=== PATIENT | female | born 1980 | race Caucasian/White ===

== ENCOUNTER 2019-01-12 14:00 | Inpatient (IN) | payer BC ==
[~2019-01-12] VITALS: Ht 167.6 cm; Wt 58.5 kg
[2019-01-12 14:39] VITALS: BP_SYST 118
[2019-01-12] MEDS ORDERED: fentaNYL CITRATE/PF 100 MCG/2 ML AMP ONE (15:39)
[2019-01-12] MEDS ORDERED: ROPIVACAINE 0.2% 100 ML ONE ×2 (15:39→23:00)
[2019-01-12] MEDS ORDERED: LR 500 ML IV ONE (15:54)
[2019-01-12] MEDS ORDERED: FENT2mCg/mL-ROPIVA0.2%/NS EPID 100 ML EP SCH (16:00)
[2019-01-12] MEDS ORDERED: OXYTOCIN/0.9 % SODIUM CHLORIDE 1,000 ML IV ONE ×2 (17:11→23:37)
[2019-01-12] MEDS ORDERED: TEMAZEPAM 15 MG CAPSULE PO PRN (21:00)
[2019-01-12] MEDS ORDERED: OXYTOCIN/0.9 % SODIUM CHLORIDE 1,000 ML IV SCH (23:37)
[2019-01-12] MEDS ORDERED: HYDROCORTISONE 0.5%, 28.35 GM TOPICAL CREAM TP PRN (23:45)
[2019-01-12] MEDS ORDERED: ANUSOL 1 EA SUPP.RECT (PREPARATION H) RC PRN (23:45)
[2019-01-12] MEDS ORDERED: DERMOPLAST SPRAY TP PRN (23:45)
[2019-01-12] MEDS ORDERED: DIPH-TET-PERTUS Vaccine 0.5 ML VIAL (ADACEL) I.M. PRN (23:45)
[2019-01-12] MEDS ORDERED: LANOLIN 7 GM OINT. TP PRN (23:45)
[2019-01-12] MEDS ORDERED: HYDROcodone/ACETAMIN 5-325 MG TAB (NORCO/ VICODIN) PO PRN (23:45)
[2019-01-12] MEDS ORDERED: RHO(D) IMMUNE GLOBULIN/MALTOSE 1500 UNITS/1.3 ML (WINHRO) IM PRN (23:45)
[2019-01-12] MEDS ORDERED: WITCH HAZEL LEAF 1 MED.PAD MED.PAD TP PRN (23:45)
[2019-01-12] MEDS ORDERED: MEASLES,MUMPS&RUBELLA VACC/PF 12500 UNIT/0.5 ML VIAL SUBQ PRN (23:45)
[2019-01-13] MEDS: OXYCODONE/ACETAMINOPHEN 5-325 TABLET PO PRN ×4 (03:25→15:08)
[2019-01-13] MEDS: IBUPROFEN 600 MG TABLET PO SCH ×3 (05:30→17:50)
[2019-01-13] MEDS: DOCUSATE SODIUM 100 MG CAPSULE PO PRN ×2 (06:00→17:49)
[2019-01-13 07:10] LABS: BASOPHILS # (AUTO) 0.1 K/uL (0.0-0.2); BASOPHILS % (AUTO) 0.5 % (0.0-2.0); EOSINOPHILS # (AUTO) 0.2 K/uL (0.0-0.4); EOSINOPHILS % (AUTO) 1.5 % (0.0-4.0); HEMATOCRIT 33.4 % (36-48); HEMOGLOBIN 11.1 g/dL (12.0-16.0); LYMPHOCYTES # (AUTO) 2.9 K/uL (1.0-5.5); LYMPHOCYTES % (AUTO) 24.2 % (20.5-51.5); MEAN CORPUSCULAR HEMOGLOBIN 32 pg (27-31); MEAN CORPUSCULAR HGB CONC 33 % (32-36); MEAN CORPUSCULAR VOLUME 97 fL (79.0-98.0); MONOCYTES # (AUTO) 0.8 K/uL (0.0-1.0); MONOCYTES % (AUTO) 6.4 % (1.7-9.3); NEUTROPHILS % (AUTO) 67.4 % (40.0-70.0); PLATELET COUNT (AUTO) 158 K/uL (130-430); RED BLOOD CELL COUNT(AUTO) 3.45 MIL/uL (4.2-6.2); RED CELL DISTRIBUTION WIDTH 13.7 % (9.0-15.0); WHITE BLOOD COUNT (AUTO) 11.9 K/uL (4.8-10.8)
[2019-01-13] MEDS ORDERED: ePHEDrine sulfate 50 MG/ML VIAL IVP ONE (07:41)
[2019-01-13] MEDS ORDERED: HYDROCORTISONE ACETATE 1 SUPP (ANUSOL HC) RC ONE (17:30)
[2019-01-13] MEDS ORDERED: HYDROCORTISONE 2.5%, 30 GM TOPICAL CREAM TP PRN (17:30)
[2019-01-13] MEDS: MILK OF MAGNESIA 30 ML UDC PO PRN (17:49)
[2019-01-14] MEDS: DOCUSATE SODIUM 100 MG CAPSULE PO PRN (00:46)
[2019-01-14] MEDS: IBUPROFEN 600 MG TABLET PO SCH ×3 (00:46→12:02)
[2019-01-14] MEDS: MILK OF MAGNESIA 30 ML UDC PO PRN (04:41)
[2019-01-14] MEDS: OXYCODONE/ACETAMINOPHEN 5-325 TABLET PO PRN (04:41)
[2019-01-14] MEDS ORDERED: SENNOSIDES/DOCUSATE SODIUM 1 TAB TABLET(SENOKOT-S) PO PRN (13:45)
== END 2019-01-14 14:00 | disposition home or self-care (01) | DRG 807 ==
LOC: SPU 14:11
PROVIDERS: ADMIT Specialist; ATTEND Specialist
PROC: 10E0XZZ Delivery of Products of Conception, External Approach (ICD-10-PCS; principal; 2019-01-12)
PROC: 10907ZC Drainage of Amniotic Fluid, Therapeutic from Products of Conception, Via Natural or Artificial Opening (ICD-10-PCS; 2019-01-12)
PROC: 3E033VJ Introduction of Other Hormone into Peripheral Vein, Percutaneous Approach (ICD-10-PCS; 2019-01-12)
PROC: 3E0R3BZ Introduction of Anesthetic Agent into Spinal Canal, Percutaneous Approach (ICD-10-PCS; 2019-01-12)
PROC: 00HU33Z Insertion of Infusion Device into Spinal Canal, Percutaneous Approach (ICD-10-PCS; 2019-01-12)
PROC: 0HQ9XZZ Repair Perineum Skin, External Approach (ICD-10-PCS; 2019-01-12)
DX: O36.5930 Maternal care for other known or suspected poor fetal growth, third trimester, not applicable or unspecified (principal); Z37.0 Single live birth; O36.8130 Decreased fetal movements, third trimester, not applicable or unspecified; O71.82 Other specified trauma to perineum and vulva; Z3A.36 36 weeks gestation of pregnancy
CPT/HCPCS: 36415; 81002-TC; 85025; J2590; J2795; J3010; J7120

== ENCOUNTER 2020-02-27 10:00 | Observation (INO) | payer BC ==
[~2020-02-27] VITALS: Ht 162.6 cm; Wt 61.2 kg
== END 2020-02-27 10:40 | disposition home or self-care (01) ==
LOC: SPU 10:00
PROVIDERS: ADMIT Specialist; ATTEND Specialist
DX: Z34.83 Encounter for supervision of other normal pregnancy, third trimester (principal); Z3A.33 33 weeks gestation of pregnancy
CPT/HCPCS: 59025; G0378

== ENCOUNTER 2020-03-05 12:29 | Observation (INO) | payer BC, SELFPAY ==
[~2020-03-05] VITALS: Ht 162.6 cm; Wt 56.2 kg
== END 2020-03-05 13:30 | disposition home or self-care (01) ==
LOC: EEVIPCON 12:29 → SPU 12:29
PROVIDERS: ADMIT Specialist; ATTEND Specialist
DX: Z03.818 Encounter for observation for suspected exposure to other biological agents ruled out (principal); Z3A.33 33 weeks gestation of pregnancy
CPT/HCPCS: 59025; 81002; G0378; U0003

== ENCOUNTER 2020-03-12 12:52 | Observation (INO) | payer BC, SELFPAY | END 2020-03-12 13:45 | disposition home or self-care (01) | LOC: SPU 12:52 | PROVIDERS: ADMIT Specialist; ATTEND Specialist | DX: O36.5930 Maternal care for other known or suspected poor fetal growth, third trimester, not applicable or unspecified (principal); Z3A.34 34 weeks gestation of pregnancy | CPT/HCPCS: G0378 ==

== ENCOUNTER 2020-03-19 15:18 | Observation (INO) | payer BC, SELFPAY ==
[~2020-03-19] VITALS: Ht 162.6 cm; Wt 61.2 kg
== END 2020-03-19 16:35 | disposition home or self-care (01) ==
LOC: SPU 15:18
PROVIDERS: ADMIT Specialist; ATTEND Specialist
DX: O36.5930 Maternal care for other known or suspected poor fetal growth, third trimester, not applicable or unspecified (principal); Z3A.35 35 weeks gestation of pregnancy
CPT/HCPCS: 81002; G0378

== ENCOUNTER 2020-03-22 12:51 | Observation (INO) | payer BC ==
[~2020-03-22] VITALS: Ht 167.6 cm; Wt 56.7 kg
== END 2020-03-22 14:10 | disposition home or self-care (01) ==
LOC: SPU 12:51 → EEVIPCON 12:51
PROVIDERS: ADMIT Specialist; ATTEND Specialist
DX: Z34.83 Encounter for supervision of other normal pregnancy, third trimester (principal); Z3A.36 36 weeks gestation of pregnancy
CPT/HCPCS: 59025; G0378

== ENCOUNTER 2020-03-25 15:39 | Observation (INO) | payer BC ==
[2020-03-25 16:52] LABS: BILIRUBIN,URINE NEGATIVE (NEGATIVE); BLOOD, URINE NEGATIVE (NEGATIVE); COLOR,URINE YELLOW (YELLOW); GLUCOSE,URINE NEGATIVE (NEGATIVE); KETONES,URINE TRACE (NEGATIVE); LEUKOCYTE ESTERASE ,URINE NEGATIVE (NEGATIVE); NITRITE, URINE NEGATIVE (NEGATIVE); PH,URINE 6.5 (5.0-8.0); PROTEIN URINE 2+ (NEGATIVE); UROBILINOGEN,URINE 0.2 (0.2-1.0)
[2020-03-25 16:55] LABS: CLARITY/URINE HAZY (CLEAR)
[2020-03-25 16:56] LABS: BASOPHILS # (AUTO) 0.1 K/uL (0.0-0.2); BASOPHILS % (AUTO) 0.7 % (0.0-2.0); EOSINOPHILS # (AUTO) 0.2 K/uL (0.0-0.4); EOSINOPHILS % (AUTO) 2.2 % (0.0-4.0); HEMOGLOBIN 12.4 g/dL (12.0-16.0); LYMPHOCYTES # (AUTO) 2.2 K/uL (1.0-5.5); LYMPHOCYTES % (AUTO) 27.1 % (20.5-51.5); MEAN CORPUSCULAR HEMOGLOBIN 32 pg (27-31); MEAN CORPUSCULAR HGB CONC 33 % (32-36); MEAN CORPUSCULAR VOLUME 97 fL (79.0-98.0); MONOCYTES # (AUTO) 0.5 K/uL (0.0-1.0); MONOCYTES % (AUTO) 6.6 % (1.7-9.3); NEUTROPHILS # (AUTO) 5.1 K/uL (1.8-7.7); NEUTROPHILS % (AUTO) 63.4 % (40.0-70.0); PLATELET COUNT (AUTO) 160 K/uL (130-430); RED BLOOD CELL COUNT(AUTO) 3.83 MIL/uL (4.2-6.2); RED CELL DISTRIBUTION WIDTH 13.2 % (9.0-15.0); WHITE BLOOD COUNT (AUTO) 8.1 K/uL (4.8-10.8)
[2020-03-25 17:06] LABS: CALCIUM 9.1 mg/dL (8.4-11.0); CREATININE 0.58 mg/dL (0.55-1.30); POTASSIUM 3.9 mmol/L (3.5-5.1)
[2020-03-25 17:13] LABS: BACTERIA,URINE MODERATE /HPF (None Seen); RBC,URINE 0-3 /HPF (0-3)
[2020-03-25 17:13] LABS: ALBUMIN 2.6 g/dL (3.4-4.8); TOTAL BILIRUBIN 0.2 mg/dL (0.0-1.0); URIC ACID 4.5 mg/dL (2.4-7.0)
[2020-03-25 17:14] LABS: MUCUS,URINE 2+ /LPF (None Seen)
[2020-03-25 18:06] LABS: INR 0.9 (0.8-1.2); PROTHROMBIN TIME 8.9 SECS (9.5-12.5)
== END 2020-03-25 17:40 | disposition home or self-care (01) ==
LOC: SPU 15:39
PROVIDERS: ADMIT Specialist; ATTEND Specialist
DX: Z34.83 Encounter for supervision of other normal pregnancy, third trimester (principal); Z3A.36 36 weeks gestation of pregnancy
CPT/HCPCS: 36415; 80053; 81000; 84550; 85025; 85610; 85730; 87086; G0378

== ENCOUNTER 2020-03-26 15:20 | Inpatient (IN) | payer BC ==
[~2020-03-26] VITALS: Ht 167.6 cm; Wt 56.7 kg
[2020-03-26] MEDS ORDERED: FIORCET PO PRN (16:30)
[2020-03-26 16:58] LABS: BASOPHILS % (AUTO) 0.5 % (0.0-2.0); EOSINOPHILS # (AUTO) 0.2 K/uL (0.0-0.4); EOSINOPHILS % (AUTO) 2.4 % (0.0-4.0); HEMOGLOBIN 11.9 g/dL (12.0-16.0); LYMPHOCYTES # (AUTO) 2.3 K/uL (1.0-5.5); LYMPHOCYTES % (AUTO) 28.7 % (20.5-51.5); MEAN CORPUSCULAR HEMOGLOBIN 32 pg (27-31); MEAN CORPUSCULAR HGB CONC 33 % (32-36); MEAN CORPUSCULAR VOLUME 97 fL (79.0-98.0); MONOCYTES # (AUTO) 0.6 K/uL (0.0-1.0); MONOCYTES % (AUTO) 7.9 % (1.7-9.3); NEUTROPHILS # (AUTO) 4.8 K/uL (1.8-7.7); NEUTROPHILS % (AUTO) 60.5 % (40.0-70.0); PLATELET COUNT (AUTO) 145 K/uL (130-430); RED BLOOD CELL COUNT(AUTO) 3.71 MIL/uL (4.2-6.2); RED CELL DISTRIBUTION WIDTH 13.2 % (9.0-15.0); WHITE BLOOD COUNT (AUTO) 7.9 K/uL (4.8-10.8)
[2020-03-26 17:01] LABS: BILIRUBIN,URINE NEGATIVE (NEGATIVE); COLOR,URINE YELLOW (YELLOW); GLUCOSE,URINE NEGATIVE (NEGATIVE); KETONES,URINE NEGATIVE (NEGATIVE); LEUKOCYTE ESTERASE ,URINE NEGATIVE (NEGATIVE); NITRITE, URINE NEGATIVE (NEGATIVE); PROTEIN URINE 1+ (NEGATIVE); UROBILINOGEN,URINE 0.2 (0.2-1.0)
[2020-03-26 17:08] LABS: BLOOD, URINE TRACE (NEGATIVE)
[2020-03-26 17:09] LABS: CLARITY/URINE SLIGHTLY HAZY (CLEAR)
[2020-03-26 17:14] LABS: BACTERIA,URINE MODERATE /HPF (None Seen); RBC,URINE 0-3 /HPF (0-3); WBC,URINE 0-3 /HPF (0-3)
[2020-03-26 17:15] LABS: COARSE GRANULAR CASTS,URINE 0-10 /LPF (None Seen); MUCUS,URINE 1+ /LPF (None Seen)
[2020-03-26] MEDS ORDERED: OXYTOCIN/0.9 % SODIUM CHLORIDE 1,000 ML IV SCH (19:37)
[2020-03-26] MEDS ORDERED: LR 1,000 ML IV ONE (19:37)
[2020-03-26] MEDS ORDERED: LR 1,000 ML IV SCH (19:37)
[2020-03-26] MEDS ORDERED: TERBUTALINE SULFATE 1 MG/ML VIAL SUBCUT ONE (19:45)
[2020-03-26] MEDS ORDERED: AMPICILLIN SODIUM 2 GM in NS 100 ML IV ONE (19:45)
[2020-03-26 20:00] VITALS: BP_SYST 136
[2020-03-26] MEDS ORDERED: AMPICILLIN SODIUM 2 GM VIAL ONE (20:33)
[2020-03-26] MEDS ORDERED: fentaNYL CITRATE/PF 100 MCG/2 ML AMP ONE (20:53)
[2020-03-26] MEDS ORDERED: ROPIVACAINE HCL/PF 0.2% 200 ML ONE (20:53)
[2020-03-26] MEDS ORDERED: LR 500 ML IV ONE (21:01)
[2020-03-26] MEDS ORDERED: FENT2mCg/mL-ROPIVA0.2%/NS EPID 200 ML EP SCH (21:15)
[2020-03-27] MEDS ORDERED: AMPICILLIN SODIUM 1 GM in NS 50 ML IV SCH ×2
[2020-03-27] MEDS ORDERED: AMPICILLIN SODIUM 1 GM VIAL ONE (00:35)
[2020-03-27] MEDS ORDERED: OXYTOCIN/0.9 % SODIUM CHLORIDE 1,000 ML IV SCH (01:33)
[2020-03-27] MEDS ORDERED: OXYTOCIN/0.9 % SODIUM CHLORIDE 1,000 ML IV ONE (01:33)
[2020-03-27] MEDS ORDERED: WITCH HAZEL LEAF 1 MED.PAD MED.PAD TP PRN (01:45)
[2020-03-27] MEDS ORDERED: MEASLES,MUMPS&RUBELLA VACC/PF 12500 UNIT/0.5 ML VIAL SUBQ PRN (01:45)
[2020-03-27] MEDS ORDERED: DERMOPLAST SPRAY TP PRN (01:45)
[2020-03-27] MEDS ORDERED: SENNOSIDES/DOCUSATE SODIUM 1 TAB TABLET(SENOKOT-S) PO PRN (01:45)
[2020-03-27] MEDS ORDERED: DIPH-TET-PERTUS Vaccine 0.5 ML VIAL (ADACEL) I.M. PRN (01:45)
[2020-03-27] MEDS ORDERED: ANUSOL 1 EA SUPP.RECT (PREPARATION H) RC PRN (01:45)
[2020-03-27] MEDS ORDERED: LANOLIN 7 GM OINT. TP PRN (01:45)
[2020-03-27] MEDS ORDERED: OXYCODONE/ACETAMINOPHEN 5-325 TABLET PO PRN (01:45)
[2020-03-27] MEDS ORDERED: RHO(D) IMMUNE GLOBULIN/MALTOSE 1500 UNITS/1.3 ML (WINHRO) IM PRN (01:45)
[2020-03-27] MEDS ORDERED: HYDROCORTISONE 0.5%, 28.35 GM TOPICAL CREAM TP PRN (01:45)
[2020-03-27] MEDS ORDERED: HYDROcodone/ACETAMIN 5-325 MG TAB (NORCO/ VICODIN) PO PRN (01:45)
[2020-03-27] MEDS: IBUPROFEN 600 MG TABLET PO SCH ×3 (05:44→18:25)
[2020-03-27] MEDS: DOCUSATE SODIUM 100 MG CAPSULE PO PRN (08:34)
[2020-03-27] MEDS: OXYCODONE/ACETAMINOPHEN 5-325 TABLET PO PRN ×2 (08:35→15:31)
[2020-03-27] MEDS ORDERED: HYDROCORTISONE 0.5%, 28.35 GM TOPICAL CREAM TP ONE (17:52)
[2020-03-27] MEDS ORDERED: TEMAZEPAM 15 MG CAPSULE PO PRN (21:00)
[2020-03-28] MEDS: IBUPROFEN 600 MG TABLET PO SCH ×2 (00:09→06:16)
[2020-03-28] MEDS: DOCUSATE SODIUM 100 MG CAPSULE PO PRN ×3 (00:09→09:15)
[2020-03-28 07:33] LABS: BASOPHILS % (AUTO) 0.5 % (0.0-2.0); EOSINOPHILS # (AUTO) 0.2 K/uL (0.0-0.4); EOSINOPHILS % (AUTO) 2.7 % (0.0-4.0); HEMATOCRIT 28.3 % (36-48); HEMOGLOBIN 9.4 g/dL (12.0-16.0); LYMPHOCYTES # (AUTO) 2.1 K/uL (1.0-5.5); LYMPHOCYTES % (AUTO) 25.9 % (20.5-51.5); MEAN CORPUSCULAR HEMOGLOBIN 32 pg (27-31); MEAN CORPUSCULAR HGB CONC 33 % (32-36); MEAN CORPUSCULAR VOLUME 96 fL (79.0-98.0); MONOCYTES # (AUTO) 0.6 K/uL (0.0-1.0); MONOCYTES % (AUTO) 6.7 % (1.7-9.3); NEUTROPHILS # (AUTO) 5.3 K/uL (1.8-7.7); NEUTROPHILS % (AUTO) 64.2 % (40.0-70.0); PLATELET COUNT (AUTO) 120 K/uL (130-430); RED BLOOD CELL COUNT(AUTO) 2.94 MIL/uL (4.2-6.2); RED CELL DISTRIBUTION WIDTH 13.4 % (9.0-15.0); WHITE BLOOD COUNT (AUTO) 8.2 K/uL (4.8-10.8)
[2020-03-28] MEDS: OXYCODONE/ACETAMINOPHEN 5-325 TABLET PO PRN (09:15)
== END 2020-03-28 09:45 | disposition home or self-care (01) | DRG 806 ==
LOC: SPU 15:20 → OBSVTOIN 19:30 → SPU 03-27 19:22
PROVIDERS: ADMIT Specialist; ATTEND Specialist
PROC: 10E0XZZ Delivery of Products of Conception, External Approach (ICD-10-PCS; principal; 2020-03-26)
PROC: 3E033VJ Introduction of Other Hormone into Peripheral Vein, Percutaneous Approach (ICD-10-PCS; 2020-03-26)
PROC: 3E0R3BZ Introduction of Anesthetic Agent into Spinal Canal, Percutaneous Approach (ICD-10-PCS; 2020-03-26)
PROC: 00HU33Z Insertion of Infusion Device into Spinal Canal, Percutaneous Approach (ICD-10-PCS; 2020-03-26)
PROC: 0HQ9XZZ Repair Perineum Skin, External Approach (ICD-10-PCS; 2020-03-26)
DX: O36.5930 Maternal care for other known or suspected poor fetal growth, third trimester, not applicable or unspecified (principal); O99.12 Other diseases of the blood and blood-forming organs and certain disorders involving the immune mechanism complicating childbirth; Z37.0 Single live birth; O13.4 Gestational [pregnancy-induced] hypertension without significant proteinuria, complicating childbirth; O36.8130 Decreased fetal movements, third trimester, not applicable or unspecified; D69.6 Thrombocytopenia, unspecified; O70.0 First degree perineal laceration during delivery; Z3A.37 37 weeks gestation of pregnancy
CPT/HCPCS: 36415; 81000-TC; 85025; 86886; 86900; 86901; 87086; G0378; J0290; J2590; J3010; J7120